=== PATIENT | male | born 1975 | race Caucasian/White ===

== ENCOUNTER → 2019-04-19 08:45 | Outpatient (BNVA) | payer BC, SELFPAY | PROVIDERS: Family Provider Family Medicine; PCP Family Medicine; Visit Provider Nurse Practitioner Psychiatric/Mental Health | DX: F31.64 Bipolar disorder, current episode mixed, severe, with psychotic features (principal); F41.1 Generalized anxiety disorder; F10.21 Alcohol dependence, in remission | CPT/HCPCS: 99214 ==

== ENCOUNTER → 2019-06-19 16:00 | Outpatient (BNVA) | payer BC, SELFPAY | PROVIDERS: Family Provider Family Medicine; PCP Family Medicine; Visit Provider Nurse Practitioner Psychiatric/Mental Health | DX: F31.64 Bipolar disorder, current episode mixed, severe, with psychotic features (principal); F41.1 Generalized anxiety disorder; F10.21 Alcohol dependence, in remission | CPT/HCPCS: 99214 ==

== ENCOUNTER → 2019-07-01 08:11 | Outpatient (BNVA) | payer BC, SELFPAY | PROVIDERS: Family Provider Family Medicine; PCP Family Medicine; Visit Provider Nurse Practitioner Psychiatric/Mental Health | DX: F31.64 Bipolar disorder, current episode mixed, severe, with psychotic features (principal); F41.1 Generalized anxiety disorder; F10.21 Alcohol dependence, in remission | CPT/HCPCS: 99214 ==

== ENCOUNTER → 2019-08-01 07:38 | Outpatient (BNVA) | payer BC, SELFPAY | PROVIDERS: Family Provider Family Medicine; PCP Family Medicine; Visit Provider Nurse Practitioner Psychiatric/Mental Health | DX: F25.0 Schizoaffective disorder, bipolar type (principal); F31.64 Bipolar disorder, current episode mixed, severe, with psychotic features; F41.1 Generalized anxiety disorder; F10.21 Alcohol dependence, in remission; F43.12 Post-traumatic stress disorder, chronic | CPT/HCPCS: 99214 ==

== ENCOUNTER → 2019-09-12 07:25 | Outpatient (BNVA) | payer BC, SELFPAY | PROVIDERS: Family Provider Family Medicine; PCP Family Medicine; Visit Provider Nurse Practitioner Psychiatric/Mental Health | DX: F25.0 Schizoaffective disorder, bipolar type (principal); F31.64 Bipolar disorder, current episode mixed, severe, with psychotic features; F41.1 Generalized anxiety disorder; F10.21 Alcohol dependence, in remission; F17.210 Nicotine dependence, cigarettes, uncomplicated | CPT/HCPCS: 99214 ==

== ENCOUNTER → 2019-10-17 08:15 | Outpatient (BNVA) | payer SELFPAY | PROVIDERS: Family Provider Family Medicine; PCP Family Medicine; Visit Provider Nurse Practitioner Psychiatric/Mental Health | DX: F25.0 Schizoaffective disorder, bipolar type (principal); F31.64 Bipolar disorder, current episode mixed, severe, with psychotic features; F41.1 Generalized anxiety disorder; F10.21 Alcohol dependence, in remission | CPT/HCPCS: 99214 ==

== ENCOUNTER → 2022-02-23 13:55 | Outpatient (BNVA) | payer OTHER, SELFPAY | PROVIDERS: Family Provider Family Medicine; PCP Family Medicine; Visit Provider Nurse Practitioner Psychiatric/Mental Health | DX: Z79.899 Other long term (current) drug therapy (principal); F25.0 Schizoaffective disorder, bipolar type; F43.12 Post-traumatic stress disorder, chronic; F10.21 Alcohol dependence, in remission; F41.1 Generalized anxiety disorder | CPT/HCPCS: 80053; 80061; 80307; 83036 ==

== ENCOUNTER → 2023-08-04 14:00 | Outpatient (BNVA) | payer OTHER, SELFPAY | PROVIDERS: Family Provider Family Medicine; PCP Family Medicine; Visit Provider Nurse Practitioner Psychiatric/Mental Health | DX: Z79.899 Other long term (current) drug therapy (principal); F25.0 Schizoaffective disorder, bipolar type; F41.1 Generalized anxiety disorder; F43.12 Post-traumatic stress disorder, chronic; F10.21 Alcohol dependence, in remission | CPT/HCPCS: 80053; 80061; 83036 ==